=== PATIENT | male | born 1970 | race Asian ===

== ENCOUNTER → 2016-09-10 | Outpatient (CLI) | payer OTHER ==
[2016-09-10 13:34] LABS: CALCIUM 9.3 mg/dL (8.5-10.1); POTASSIUM 3.8 mmol/L (3.5-5.1)
[2016-09-10 13:38] LABS: ALBUMIN 4.4 g/dL (3.4-5.0); TOTAL BILIRUBIN 0.5 mg/dL (<0.1-1.0); TOTAL PROTEIN 7.6 g/dL (6.4-8.2)
[2016-09-10 14:08] LABS: TSH 3.08 uIU/mL (0.358-3.740)
== END ==
LOC: LABMALL 11:09
PROVIDERS: Psychiatry & Neurology Neurology
DX: Z01.812 Encounter for preprocedural laboratory examination (principal)

== ENCOUNTER → 2016-09-16 | Outpatient (CLI) | payer OTHER | LOC: ULTRA 08:10 | DX: G45.9 Transient cerebral ischemic attack, unspecified (principal); R53.83 Other fatigue; R42 Dizziness and giddiness; R26.89 Other abnormalities of gait and mobility ==

== ENCOUNTER → 2016-10-08 | Outpatient (CLI) | payer OTHER | LOC: LABMALL 13:00 | DX: E53.8 Deficiency of other specified B group vitamins (principal) ==

== ENCOUNTER → 2016-11-05 | Outpatient (CLI) | payer OTHER | LOC: LABMALL 11:20 | DX: Z01.812 Encounter for preprocedural laboratory examination (principal) ==

== ENCOUNTER → 2016-11-21 | Outpatient (CLI) | payer OTHER ==
--- NOTE | ~2016-11-21 | SLE ---
[facility] [address] [place] [address] POLYSOMNOGRAPHY STUDY Name: JUAN ALBERTO SALVADOR RAJANI Room #: REG [facility]#: [id number] Admission: 11/21/16 Attend Phys: Ayaka Hensley MD Discharge: Date of : 66 Report #: [id number] THIS REPORT FOR: //name// CC: ANGEL LUIS physician/PCP Ayaka Hensley HISTORY: A 45-year-old, height 5 feet 8, weight 182 pounds, problem began 3-4 years ago, feels tired, difficulty with sleep. Usually goes to bed 9-10 p.m., gets out of bed at 5:00 a.m., does not feel refreshed. No definite snoring, occasional daytime somnolence. Has had sinus surgery polyposis. COMMENTS: Total sleep time 241 minutes, sleep efficiency 61%. Sleep latency 70, REM latency 202 minutes. SLEEP STAGE: 1-3%, 2-87%, 3-3%, REM - 7%. Central apnea 0, mixed apnea 0, obstructive apnea 0, hypopnea 33. Apnea-hypopnea index of 8 events per sleep hour. Non-REM AHI 8, REM AHI 11. Periodic limb movement with arousal index 0 events per sleep hour. Low oxygen saturation 89%. IMPRESSION: 1. Obstructive sleep apnea/hypopnea with positional component. Supine AHI 11, left lateral 7, right lateral 0 events per sleep hour. G47.33 2. No significant arrhythmia noted. 3. Periodic limb movement with arousal index 0 events per sleep hour. 4. Significant snoring noted. SUGGESTIONS: 1. In addition to specific therapy, the patient should be cautioned regarding driving or operating dangerous machinery unless fully alert. 2. The patient should be cautioned regarding the use of respiratory depressants. 3. Further evaluation regarding etiology of snoring is recommended and with history of sinus polyps further evaluation per ENT may be considered. 4. Oral appliance or appropriate surgery may be considered with appropriate followup. 5. The usual sleep apnea suggestions are recommended. 6. Sleep position retraining is recommended. 7. An auto titrating CPAP between 5 and 12 cm water pressure is initially recommended with a full face mask. 8. If signs and symptoms not improved with therapy, further evaluation is recommended. Please do not hesitate to contact me if I may be of further assistance. <ELECTRONICALLY SIGNED> By: Robert Horta MD 11/25/16 [id number] Robert Horta MD /nt
== END ==
LOC: SLEEPLAB 09:21
DX: G47.33 Obstructive sleep apnea (adult) (pediatric) (principal)